=== PATIENT | female | born 1985 | race Caucasian/White ===

== ENCOUNTER 2020-02-22 14:54 | Outpatient (CLI) | payer OTHER, SELFPAY ==
[2020-02-22 15:22] LABS: Basophils % 0.4 %; Eosinophils # 0.1 10^3/uL (0.0-0.8); Hematocrit 41.1 % (37.0-47.0); Hemoglobin 13.2 g/dL (11.5-15.3); Lymphocytes # 1.2 10^3/uL (0.8-4.8); Lymphocytes % 24.6 %; Mean Corpuscular HGB Conc 32.1 g/dL (30.0-36.0); Mean Corpuscular Volume 87.3 fL (81-99); Mean Platelet Volume 10.6 fL (7.4-10.4); Monocytes # 0.5 10^3/uL (0.2-0.9); Neutrophils # 3.19 10^3/uL (1.8-7.7); Neutrophils % 63.8 %; Nucleated Red Blood Cells % 0 %; Platelet Count 199 10^3/cmm (130-400); Red Blood Count 4.71 10^6/uL (4.1-5.3); Red Cell Distribution Width 13.2 % (12.1-15.1)
--- NOTE | 2020-02-22 15:45 | US_ITS ---
WS: [id number] ULTRASOUND THYROID TECHNIQUE: Ultrasound of the thyroid. CLINICAL INFORMATION: throat fullness COMPARISON: None. FINDINGS: Thyroid: Right and left thyroid lobes are normal in size and echotexture. Multiple thyroid nodules bi laterally. Right thyroid lobe: 6.4 cm x 1.7 cm x 2.3 cm Multiple subcentimeter cystic lesions likely colloid cysts. Left thyroid lobe: 6.5 cm x 2.4 cm x 2.6 cm. Cystic and solid left thyroid nodules the largest solid nodule measuring 3.2 x 2.0 x 1.8 cm Isthmus: 0.6 mm. Cervical lymphadenopathy: None. US/US thyroid [id number] IMPRESSION: 1. Left dominant solid thyroid nodule measuring 3.2 x 2.0 x 1.8 cm. This can b e further evaluated with ultrasound-guided FNA. 2. Small subcentimeter right thyroid lesions mainly represent incidental collo id cysts.
[2020-02-22 17:11] LABS: Alanine Aminotransferase 13 U/L (0-33); Albumin Level 4.4 g/dL (3.5-5.2); Alkaline Phosphatase 41 IU/L (35-105); Aspartate Amino Transferase 17 U/L (0-32); Blood Urea Nitrogen 7 mg/dL (6-20); Calcium 9.2 mg/dL (8.5-10.5); Carbon Dioxide 27 mmol/L (22-29); Chloride 104 mmol/L (98-107); Globulin 3.1 g/dL (1.3-4.6); Glomerular Filtration Rate 83.1 mL/min (90-130); Glucose 108 mg/dL (65-115); Osmolality Calculated 286 mOsm/kg (285-295); Sodium 140 mmol/L (136-145); Thyroid Stimulating Hormone 1.77 uIU/mL (0.27-4.20); Total Bilirubin 0.3 mg/dL (0.15-1.2); Total Protein 7.5 g/dL (6.6-8.7)
== END 2020-02-22 14:55 | disposition home or self-care (01) ==
PROVIDERS: Family Provider Nurse Practitioner Family; PCP Nurse Practitioner Family; Visit Provider Nurse Practitioner Family
DX: R68.89 Other general symptoms and signs (principal); R53.83 Other fatigue; E04.1 Nontoxic single thyroid nodule; E07.9 Disorder of thyroid, unspecified
CPT/HCPCS: 76536; 80053; 84443; 85025

== ENCOUNTER → 2020-08-10 14:15 | Outpatient (BNVA) | payer OTHER, SELFPAY | PROVIDERS: Family Provider Nurse Practitioner Family; PCP Nurse Practitioner Family; Visit Provider Nurse Practitioner | DX: Z20.828 Contact with and (suspected) exposure to other viral communicable diseases (principal) | CPT/HCPCS: 87635 ==

== ENCOUNTER → 2020-09-15 09:53 | Outpatient (BNVA) | payer OTHER, SELFPAY | PROVIDERS: Family Provider Nurse Practitioner Family; PCP Nurse Practitioner Family; Visit Provider Nurse Practitioner Family | DX: Z20.828 Contact with and (suspected) exposure to other viral communicable diseases (principal) | CPT/HCPCS: 87635 ==

== ENCOUNTER → 2020-10-28 16:30 | Outpatient (BNVA) | payer OTHER, SELFPAY | PROVIDERS: Family Provider Nurse Practitioner Family; Visit Provider Nurse Practitioner Family | DX: J02.9 Acute pharyngitis, unspecified (principal) | CPT/HCPCS: 87880 ==

== ENCOUNTER 2020-11-01 09:02 | Emergency (ER) | payer OTHER, SELFPAY ==
[2020-11-01 09:15] VITALS: BP 124/87; PULSE 72; RESP 18; TEMP 36.9; O2SAT 97; BMI 33.2
--- NOTE | 2020-11-01 09:23 | W.ED.BACK ---
HPI - Back Pain/Injury General: Chief Complaint: Back Pain/Injury Stated Complaint: back pain Time Seen by Provider: 11/01/20 09:05 History of Present Illness: HPI Narrative: Patient is a 35-year-old female comes to the ED with lower back pain. Patient says yesterday she was lifting a heavy washer and dryer onto a trailer and hurt her lower back. She says this morning she woke up with lower back pain she rates it 10 out of 10. Patient denies any pain radiating down into her lower extremities. Denies any numbness tingling to lower extremities, weakness to lower extremities, bladder or bowel incontinence, pelvic anesthesia. Associated symptoms: Deny abdominal pain, chills, dysuria, fatigue, fever(s), hematuria, nausea or vomiting Review of Systems Const: Denies: fever(s), chills or fatigue Eyes: Denies: change in vision or eye discomfort ENMT: Denies: throat pain, odynophagia, nasal discharge or nasal congestion Card: Denies: chest pain, palpitations, edema, swelling of feet/ankles, dyspnea on exertion or orthopnea Resp: Denies: dyspnea, productive cough or non-productive cough GI: Denies: abdominal pain, nausea, vomiting, diarrhea, constipation or hematochezia : Denies: flank pain, dysuria or hematuria Musc: Reports: back pain; Denies: neck pain or extremity swelling Skin/Breast: Denies: rash or new lesions Neuro: Denies: headache(s), numbness in extremities or weakness in extremities PFS ED PFSH: Medical History Thyroid nodule Social History Smoking and tobacco status: former smoker Alcohol intake: never Lives independently: Yes Housing: House Marital status: Pets and animals: No History of recent travel: No Physical Exam Const: COMMON NORMALS: no acute distress, patient oriented x3, healthy appearing and alert GENERAL APPEARANCE: cooperative and comfortable HENMT: COMMON NORMALS: normocephalic HEAD & SCALP: normocephalic MOUTH: Normal oral and palatal mucosa present THROAT: posterior oropharynx normal and uvula midline Neck/C-Spine: COMMON NORMALS: supple GENERAL: Yes normal visual inspection Resp: COMMON NORMALS: normal respiratory effort, No retractions, No use of accessory muscles and clear to auscultation bilaterally AUSCULTATION: clear to auscultation bilaterally Cardio: COMMON NORMALS: regular rate, regular rhythm, S1 normal heart sound present, S2 normal heart sound present, No gallops present (Cardio), No clicks present (Cardio), No murmurs present (Cardio) and Peripheral pulses 2+ throughout RATE: regular rate RHYTHM: regular rhythm HEART SOUNDS: S1 normal heart sound present and S2 normal heart sound present PERIPHERAL PULSES: Peripheral pulses 2+ throughout GI: COMMON NORMALS: Normal to inspection, nondistended, normoactive bowel sounds present, Soft to palpation, non-tender and no masses PALPATION: Yes Soft to palpation : COMMON NORMALS: Yes no CVA tenderness BLADDER/KIDNEY EXAM: Yes no CVA tenderness Back/Pelvis: COMMON NORMALS: no CVA tenderness LUMBAR SPINE/LOWER BACK: Yes ROM limited, Yes pain with ROM and Yes paraspinal muscle tenderness Lumbar paraspinal muscle tenderness: bilateral Bilateral lumbar paraspinal muscle tenderness: L4 and L5 Extremity: COMMON NORMALS: normal to inspection Neuro: COMMON NORMALS: patient oriented x3 and moves all extremities SENSORIUM/ORIENTATION: Yes alert Skin: GENERAL SKIN EXAM: dry skin Course Vital Signs: Vital signs: Vital Signs Temperature 98.5 F 11/01/20 09:15 Pulse Rate 69 11/01/20 10:37 Respiratory Rate 20 H 11/01/20 10:37 Blood Pressure 122/86 11/01/20 10:37 Pulse Oximetry 97 11/01/20 10:37 MDM - Back Pain/Injury MDM Narrative: Medical decision making narrative: Patient is a 35-year-old female comes to the ED with lower back pain. Patient was lifting a washer and around her trailer yesterday and today she woke up with low back pain. Patient has lumbar paraspinal muscle tenderness bilaterally on palpation. She was given a dose of Toradol and Norflex while here in the ED. Patient diagnosed with low back strain and discharged home with a prescription for ibuprofen and methocarbamol. Return to ED precautions given. Follow-up with PCP in 7 to 10 days. Discharge Plan Discharge Patient Disposition: Home Clinical Impression: Strain of lumbar region Qualifiers: Encounter type: initial encounter Qualified Code(s): S39.012A - Strain of muscle, fascia and tendon of lower back, initial encounter Condition: Stable Prescriptions: New methocarbamol 750 mg tablet 750 mg PO Q8H Qty: 20 RF: 0 ibuprofen 800 mg tablet 800 mg PO Q8H PRN (Reason: pain) Qty: 20 RF: 0 No Action amoxicillin 500 mg capsule 500 mg PO BID 10 Days Qty: 20 RF: 0 Discharge Orders: Discharge ED (Routine); Ordered 11/01/20 Ordered By: Peter Delarosa Discharge Diet: Regular Discharge Activity: Increase activity as tolerated Patient Instructions: Low Back Strain (ED) Activity Restrictions/Additional Instructions: Follow-up with medical provider as directed in 7 to 10 days for reevaluation. Methocarbamol is a muscle relaxer and can cause some drowsiness so take at night before bed. If you use during the day use with caution. Rest, limit lifting and activity for the next couple days and apply ice or heat on lower back help with symptoms. Take medications as prescribed. Return to the ER or your medical provider if condition worsens. Please read and understand discharge instructions. If any questions, please ask. Coding Level of Care Code ED Compressor Operator Portable for Kishor Fwjuan Exam Comprehensive
[2020-11-01] MEDS: ketorolac 60 mg/2 mL INJ IM (10:21)
[2020-11-01] MEDS: orphenadrine 30 mg/mL Inj 2 mL 60 MG IM (10:21)
[2020-11-01 10:37] VITALS: BP 122/86; PULSE 69; RESP 20; O2SAT 97
== END 2020-11-01 10:38 | disposition home or self-care (01) ==
PROVIDERS: Emergency Provider Physician Assistant
DX: S39.012A Strain of muscle, fascia and tendon of lower back, initial encounter (principal); Z87.891 Personal history of nicotine dependence; X50.0XXA Overexertion from strenuous movement or load, initial encounter
CPT/HCPCS: 96372; 99283; J1885; J2360

== ENCOUNTER 2021-02-12 07:54 | Emergency (ER) | payer OTHER, SELFPAY ==
[2021-02-12 07:59] VITALS: BP 142/106; PULSE 94; RESP 18; TEMP 37.3; O2SAT 99; BMI 34.0
[2021-02-12 08:04] VITALS: BP 168/98; PULSE 91; PULSE 92; RESP 16; RESP 19; O2SAT 98; O2SAT 99
--- NOTE | 2021-02-12 08:05 | XR_ITS ---
WS: [id number] Left hand, 3 views, 02/12/2021 Clinical Data: injury Comparison: None. Findings: There is a transverse fracture of the distal phalanx of the left third finger with ventral displaceme nt of the distal fragment. No other new fractures are seen. There is a healed fracture of the ungual tuft of the distal phalanx of the left fifth finger. XR/XR hand LT min 3V* [id number] Impression: Fracture of distal phalanx of the left third finger.
--- NOTE | 2021-02-12 08:09 | W.ED.EXTPRO ---
HPI - Extremity Problem General: Chief complaint: Extremity Injury, Upper Stated complaint: L hand LAC Time Seen by Provider: 02/12/21 07:57 History of Present Illness: HPI Narrative: Patient got left finger caught between some metal at work today. Sustained a laceration at the base of the nail. Patient is up-to-date her tetanus. MD Complaint: extremity pain Onset (ago): minute(s) Pain Consistency: constant Location: left and upper extremity Severity scale (1-10): 3 Quality: aching Relieving factors: immobilization Exacerbating factors: range of motion Associated symptoms: Reports no associated symptoms; Deny fever(s) Review of Systems Narrative: Laceration sustained to the left finger at work today patient works at [employer] Const: Denies: fever(s) or chills Skin/Breast: Reports: other (Laceration left finger) Psych: Denies: anxiety PFSH ED PFSH: Medical History Thyroid nodule Social History Smoking and tobacco status: former smoker Alcohol intake: never Lives independently: Yes Housing: House Marital status: Pets and animals: No History of recent travel: No Physical Exam Const: COMMON NORMALS: no acute distress GENERAL APPEARANCE: cooperative Psych: COMMON NORMALS: mental status grossly normal APPEARANCE: Yes grossly normal Skin: OTHER: Distal aspect left middle finger shows laceration base the nail the end of the nail is avulsed no active bleeding. Patient able to move finger without difficulty. Course Vital Signs: Vital signs: Vital Signs Temperature 99.2 F 02/12/21 07:59 Pulse Rate 91 02/12/21 08:15 Respiratory Rate 16 02/12/21 08:04 Blood Pressure 168/98 02/12/21 08:04 Pulse Oximetry 98 02/12/21 08:04 MDM - Extremity (Nontraumatic) MDM Narrative: Medical decision making narrative: I spoke in consult Dr. Newby at [facility]. Dr. Newby asked we have patient be at her office at [address] her on antibiotic Keflex and she will get her scheduled for surgery. Patient was placed in a bulky dressing and splint and released back to [employer] work comp. Discharge Plan Discharge Prescriptions: No Action ibuprofen 800 mg tablet 800 mg PO Q8H PRN (Reason: pain) Qty: 20 RF: 0 amoxicillin 500 mg capsule 500 mg PO BID 10 Days Qty: 20 RF: 0 methocarbamol 750 mg tablet 750 mg PO Q8H Qty: 20 RF: 0 Coding Level of Care Code ED Academic Adviser for Chg Fwd Exam Expanded Problem Focused
[2021-02-12 08:15] VITALS: PULSE 91
[2021-02-12] MEDS: HYDROcodone-acetaminophen 7.5-325 mg Tablet 1 TAB PO (08:48)
[2021-02-12] MEDS: bacitracin ointment Pkt 1 EACH TOPICAL (09:53)
== END 2021-02-12 10:05 | disposition home or self-care (01) ==
PROVIDERS: Emergency Provider Nurse Practitioner Family
DX: S61.313A Laceration without foreign body of left middle finger with damage to nail, initial encounter (principal); W31.82XA Contact with other commercial machinery, initial encounter; Y92.89 Other specified places as the place of occurrence of the external cause; Y99.0 Civilian activity done for income or pay
CPT/HCPCS: 29130; 73130; 99283